=== PATIENT | female | born 1960 | race Caucasian/White ===

== ENCOUNTER 2023-04-09 10:57 | Emergency (ER) | payer MEDICARE, BC ==
[2023-04-09] MEDS ORDERED: Ibuprofen 400 MG Tab PO ONE (11:54)
== END 2023-04-09 14:45 | disposition home or self-care (01) ==
LOC: JP.ED 10:57
DX: S06.0X0A Concussion without loss of consciousness, initial encounter (principal); S13.4XXA Sprain of ligaments of cervical spine, initial encounter; S16.1XXA Strain of muscle, fascia and tendon at neck level, initial encounter; W01.0XXA Fall on same level from slipping, tripping and stumbling without subsequent striking against object, initial encounter
CPT/HCPCS: 70450; 72125; 72128; 99283; A9270